=== PATIENT | male | born 1990 | race Two or more races ===

== ENCOUNTER 2023-10-03 17:48 | Emergency (ER) | payer MEDICAID ==
[~2023-10-03] VITALS: Ht 177.8 cm; Wt 71.8 kg
[2023-10-03 17:54] VITALS: PULSE 65; RESP 16; TEMP 98; O2SAT 94
== END 2023-10-03 18:11 | disposition home or self-care (01) ==
LOC: ER 17:49
DX: S01.21XD Laceration without foreign body of nose, subsequent encounter (principal); Z48.00 Encounter for change or removal of nonsurgical wound dressing; X58.XXXD Exposure to other specified factors, subsequent encounter
CPT/HCPCS: 99281